=== PATIENT | male | born 1990 | race Caucasian/White ===

== ENCOUNTER 2022-10-05 23:36 | Emergency (ER) | payer OTHER, SELFPAY ==
--- NOTE | ~2022-10-05 | XR_ITS ---
EXAMINATION: XR LUMBOSACRAL SPINE CLINICAL INFORMATION: Pain COMPARISON: None available. TECHNIQUE: Three views of the lumbosacral spine. FINDINGS: The vertebral bodies and posterior elements are normal. Mild loss of disc space height at L5-S1 with accompanying small endplate osteophytes. Vertebral alignment is normal. The paraspinal soft tissues are normal. XR/XR lumbar spine 2-3V IMPRESSION: * No acute findings. * Mild loss of disc space height at L5-S1.
[2022-10-05 23:55] VITALS: BP 148/87; PULSE 87; RESP 18; TEMP 36.9; O2SAT 99
[2022-10-06 00:01] VITALS: BP 148/87; PULSE 87; RESP 18; TEMP 36.9; O2SAT 99; BMI 24.3
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
== END 2022-10-06 01:46 | disposition home or self-care (01) ==
PROVIDERS: Emergency Provider Internal Medicine
DX: K40.90 Unilateral inguinal hernia, without obstruction or gangrene, not specified as recurrent (principal); M54.50 Low back pain, unspecified
CPT/HCPCS: 72100; 99283; 99284

== ENCOUNTER → 2022-10-14 09:28 | Outpatient (BNVA) | payer OTHER, SELFPAY | PROVIDERS: Visit Provider Surgery | DX: R19.09 Other intra-abdominal and pelvic swelling, mass and lump (principal); Z80.0 Family history of malignant neoplasm of digestive organs | CPT/HCPCS: 99202 ==

== ENCOUNTER 2023-03-09 22:17 | Emergency (ER) | payer OTHER, SELFPAY ==
--- NOTE | ~2023-03-09 | CT_ITS ---
EXAMINATION: CT ABDOMEN AND PELVIS WITH CONTRAST CLINICAL INFORMATION: Left upper quadrant pain post trauma COMPARISON: None available. TECHNIQUE: Multidetector volumetric images were obtained from the superior aspect of the liver through the pubic symphysis following administration 85 mL of Omnipaque 350 intravenous contrast. Sagittal and coronal reformatted images were obtained on the technologist's workstation. Oral contrast: No This CT examination was performed using dose optimization techniques as appropriate, variously including the following: *Automated exposure control *Adjustment of mA and/or kV according to patient size (this includes techniques or standardized protocols for targeted exams where dose is matched to indication/reason for exam; i.e. extremities or head) *Use of iterative reconstruction technique DLP: 432 mGy-cm FINDINGS: LUNG BASES: Bibasilar atelectasis and some tree-in-bud opacities are present. No pleural effusions. LIVER, GALLBLADDER, AND BILIARY TREE: The liver is enlarged measuring 19 cm in cephalocaudad dimension with decreased attenuation suggesting hepatic steatosis. No focal hepatic lesion or biliary ductal dilatation is present. The gallbladder is unremarkable with no evidence of radiopaque gallstones, gallbladder wall thickening, or obvious pericholecystic inflammatory changes. PANCREAS: Unremarkable. SPLEEN: Unremarkable. ADRENAL GLANDS: Unremarkable. KIDNEYS AND URETERS: The kidneys are normal in size, shape, and attenuation. No hydronephrosis, hydroureter, or calculi seen. No perinephric stranding. BLADDER: Unremarkable. GASTROINTESTINAL TRACT: A linear metallic device is just outside the posterior antral wall measuring about 2.6 cm in length. This can also be seen on the lumbar spine radiographs from 10/06/2012. The small and large bowel are unremarkable aside from some colonic diverticula without diverticulitis. The appendix is unremarkable. ABDOMINAL WALL: No significant hernia is appreciated. LYMPH NODES: No retroperitoneal lymphadenopathy. VASCULAR: Unremarkable. PELVIC VISCERA: Mild BPH. Seminal vesicles are normal OSSEOUS STRUCTURES: Mild degenerative changes are present in the spine. No acute fractures. CT/CT abdomen pelvis w IV con IMPRESSION: 1. A cause for the patient's left upper quadrant pain has not been found. 2. Incidental note made of an enlarged fatty liver, colonic diverticula without diverticulitis, mild degenerative changes in the spine and mild BPH. Fleischner guidelines were followed.
[2023-03-09 22:20] VITALS: BP 157/104; PULSE 79; RESP 18; TEMP 36.9; O2SAT 96; BMI 24.4
[2023-03-09 22:33] LABS: MANUAL DIFF FLAG NO
[2023-03-09 22:34] LABS: Basophils Percent Auto 0.6 % (0-2); Eosinophils Absolute Auto 0.3 X10*3/uL (0.0-0.4); Eosinophils Percent Auto 5.2 % (0-4); Hematocrit 36.9 % (42.0-52.0); Hemoglobin 13.2 g/dl (14.0-18.0); Imm Gran Abs Auto 0.01 X10*3/uL (0.00-0.03); Imm Gran Pct Auto 0.2 % (0.0-0.4); Lymphocytes Absolute Auto 1.9 X10*3/uL (1.2-4.9); Lymphocytes Percent Auto 37.4 % (20-40); Mean Corpuscular HGB Conc 35.8 g/dl (31.0-36.0); Mean Corpuscular Hemoglobin 33.2 pg (27.0-33.0); Mean Corpuscular Volume 92.9 fL (80.0-98.0); Mean Platelet Volume 9.1 fL (9.4-12.4); Monocytes Absolute Auto 0.5 X10*3/uL (0.1-1.2); Neutrophils Absolute Auto 2.3 x10*3/uL (2.0-8.3); Neutrophils Percent Auto 46.6 % (45-73); Platelet Count 224 X10*3/uL (160-400); Red Blood Count 3.97 X10*6/uL (4.60-5.80)
[2023-03-09 22:50] LABS: Alanine Aminotransferase 35 U/L (0-40); Albumin Level 4.2 g/dL (3.5-5.0); Alkaline Phosphatase 94 U/L (39-117); Anion Gap 12 (12-20); Aspartate Amino Transferase 52 U/L (5-37); Bilirubin Direct 0.2 mg/dL (0.0-0.5); Bilirubin Total 0.4 mg/dL (0.0-1.0); Blood Urea Nitrogen 8 mg/dL (9-16); Calcium 9.3 mg/dL (8.4-10.2); Carbon Dioxide 25 mmol/L (22-29); Chloride 106 mmol/L (96-108); Creatinine Clr Calc Pharmacy 126.5; Estimated Glomerular Filt Rate > 60; Glucose Random 104 mg/dL (60-115); Lipase 38 U/L (8-78); Potassium 3.9 mmol/L (3.3-5.1); Sodium 139 mmol/L (135-145); Total Protein 7.5 g/dL (6.5-8.0)
[2023-03-09 22:55] VITALS: BP 140/92; PULSE 77; RESP 17; TEMP 36.9; O2SAT 100
--- NOTE | 2023-03-09 23:28 | ED.ABDPAIN ---
HPI - Abdominal Pain General Chief Complaint: Abdominal Pain Stated Complaint: L side flank pain, sob Time Seen by Provider: 03/09/23 22:58 Source: patient and old records reviewed Mode of arrival: ambulatory Limitations: no limitations History of Present Illness HPI narrative: 32 yo male with no sig PMH was at work and carrying a large industrial sized pot he accidentally walked into a stove and slammed the pot into his LUQ. He now has pain in LUQ and it hurts to breathe, move and touch LUQ. He has no fevers, GI or symptoms. MD elicited complaint: abdominal pain Pertinent past history: none Onset (ago): day(s) (3) Pain Consistency: constant Location: LUQ Severity: moderate Quality: sharp Radiation: none Migration to: no migration Exacerbating factors: movement and other (breathing) Relieving factors: nothing Context: other (reports trauma to LUQ) Associated symptoms: denies other symptoms Related Data Previous Rx's Medication Instructions Recorded cyclobenzaprine 10 mg tablet 10 mg PO TID PRN muscle spasm #14 03/10/23 tabs lidocaine 5 % topical patch 1 patch topical DAILY #30 ea 03/10/23 Allergies Allergy/AdvReac Type Severity Reaction Status Date / Time No Known Allergies Allergy Unverified 10/14/22 09:46 [No Known Allergies*] Review of Systems Review of Systems Constitutional : No Weight loss, No Fever, No Chills Cardiovascular : No Chest Pain, No SOB, NoEdema Respiratory : No Cough, No Sputum, No Wheezing Gastrointestinal : no Nausea, no Vomiting, no Diarrhea, positive abdominal Pain, No Hematochezia, No Melena Genitourinary : No Dysuria, No Urinary Frequency, No Hematuria, No Urgency Musculoskeletal : No joint pain, No Myalgias, No Joint Swelling Skin : No Skin Lesions, No rash Neuro : No Weakness, No Numbness, No Dizziness, No Headache Psych : No Anxiety/Panic, No Depression All other systems reviewed and are negative. [facility] Past Medical History Attestation statement: The following information was validated with the patient. Medical History Family history of pancreatic cancer Right groin mass Family History Family History Mother Pancreatic cancer Social History Social History Alcohol intake: current Alcohol intake frequency: a few times a month Patient Tobacco Use Status: Current everyday Tobacco user Smoked in Last 30 Days: Yes Use of substances other than those prescribed or required for medical reasons: Yes Substance Use Type: Marijuana Substance Use Frequency: Daily Last Used Substance: Hours (ago) Advance Directives: No Advance Directives Information Provided: Yes Physical Exam ED Vital Signs: Vital Signs - 24 hr 03/09/23 22:20 03/09/23 22:55 Temperature 98.4 F 98.4 F Pulse Rate 79 77 Respiratory Rate 18 17 Blood Pressure 157/104 H 140/92 H Pulse Oximetry 96 100 Oxygen Delivery Method Room Air Room Air BMI result Body Mass Index 24.4 Appearance: Alert. Oriented X3. No acute distress. Eyes: Pupils equal, round and reactive to light. ENT: Pharynx normal. Neck: Normal inspection. Neck supple. CVS: Normal heart rate and rhythm. Pulses normal. Chest: no rib ttp on left side Respiratory: No respiratory distress. Breath sounds normal. Abdomen: Soft and moderate LUQ ttp no rebound or mass felt Skin: Skin warm and dry. Normal skin color. Normal skin turgor. Extremities: No lower extremity edema. No calf ttp Neuro: Oriented X 3. No motor deficit. No sensory deficit. Course Course Course Narrative: okay to DC with abdominal wall strain Medical Decision Making Medical Decision Making [facility] Narrative: 32 yo male with no sig PMH here with c/o LUQ pain after direct trauma to the area 3 days ago he notes it hurts to move, breathe and walk. He has no associated GI or symptoms. He has no rib pain. He will need labs and CT scan to assess the spleen. Doubt rib fracture given normal exam and no rib ttp Differential Diagnosis Differential Diagnoses: The differential diagnosis associated with the presentation includes sprain, strain, contusion, splenic injury Admission/Observation Consideration of admission/observation: Escalation of care including admission/observation considered labs stable no splenic injury can be DC home Lab Data [facility] Lab Attestation statement: I reviewed the patient's lab results. 03/09/23 22:29 03/09/23 22:29 Labs: Lab Results 03/09/23 Range/Units 22:29 WBC 5.0 (4.8-10.8) X10*3/uL RBC 3.97 L (4.60-5.80) X10*6/uL Hgb 13.2 L (14.0-18.0) g/dl Hct 36.9 L (42.0-52.0) % MCV 92.9 (80.0-98.0) fL MCH 33.2 H (27.0-33.0) pg MCHC 35.8 (31.0-36.0) g/dl RDW 13.0 (11.0-16.0) % Plt Count 224 (160-400) X10*3/uL MPV 9.1 L (9.4-12.4) fL Immature Gran % (Auto) 0.2 (0.0-0.4) % Neut % (Auto) 46.6 (45-73) % Lymph % (Auto) 37.4 (20-40) % [place] % (Auto) 10.0 (2-11) % Eos % (Auto) 5.2 H (0-4) % Baso % (Auto) 0.6 (0-2) % Lymph # (Auto) 1.9 (1.2-4.9) X10*3/uL [place] # (Auto) 0.5 (0.1-1.2) X10*3/uL Eos # (Auto) 0.3 (0.0-0.4) X10*3/uL Baso # (Auto) 0.0 (0.0-0.2) X10*3/uL Abs Immat Gran (auto) 0.01 (0.00-0.03) X10*3/uL Absolute Neuts (auto) 2.3 (2.0-8.3) x10*3/uL Absolute Nucleated RBC 0.000 (0.0-0.012) X10*3/uL Nucleated RBC % (auto) 0.0 (0.0-0.2) /100WBC Sodium 139 (135-145) mmol/L Potassium 3.9 (3.3-5.1) mmol/L Chloride 106 (96-108) mmol/L Carbon Dioxide 25 (22-29) mmol/L Anion Gap 12 (12-20) BUN 8 L (9-16) mg/dL Creatinine 0.83 (0.5-1.4) mg/dL Estim Creat Clear Calc 126.5 Estimated GFR > 60 Random Glucose 104 (60-115) mg/dL Calcium 9.3 (8.4-10.2) mg/dL Total Bilirubin 0.4 (0.0-1.0) mg/dL Direct Bilirubin 0.2 (0.0-0.5) mg/dL AST 52 H (5-37) U/L ALT 35 (0-40) U/L Alkaline Phosphatase 94 (39-117) U/L Total Protein 7.5 (6.5-8.0) g/dL Albumin 4.2 (3.5-5.0) g/dL Lipase 38 (8-78) U/L Independent Interpretation I performed an independent interpretation of an: CT Scan (no splenic injury) Radiology Impression Discussion of test interpretation with radiology: I have reviewed the radiologist's reading. External Record Review External record reviewed: Office record Prescription Management I considered prescription management with: Other (muscle relaxers and pain patches) Medications Administered Discontinued Medications Generic Name Dose Route Start Last Admin Trade Name Freq PRN Reason Stop Dose Admin Hydrocodone Bitart/Acetaminophen 1 tab 03/09/23 23:10 03/09/23 23:42 Hydrocodone Bit/Acetam 5/325 Tablet PO 03/09/23 23:11 1 tab ONCE ONE Administration Iohexol 85 ml 03/10/23 00:06 03/10/23 00:07 Iohexol 350 Mg/Ml 100 Ml Infus..Btl IV 03/10/23 00:07 85 ml ONCE ONE Administration Discharge Plan Discharge Clinical Impression: Abdominal pain Qualifiers: Abdominal location: left upper quadrant Qualified Code(s): R10.12 - Left upper quadrant pain Patient Disposition: Home, Self-Care Instructions: Abdominal Pain (ED) Additional Instructions: no injury to spleen - labs stable incidental findings on CT scan not cause of pain will treat as muscle strain and contusion CT/CT abdomen pelvis w IV con IMPRESSION: 1. A cause for the patient's left upper quadrant pain has not been found. 2. Incidental note made of an enlarged fatty liver, colonic diverticula without diverticulitis, mild degenerative changes in the spine and mild BPH. Prescriptions: New cyclobenzaprine 10 mg tablet 10 mg PO TID PRN (Reason: muscle spasm) Qty: 14 0RF lidocaine 5 % adhesive patch,medicated 1 patch topical DAILY Qty: 30 0RF Rx Instructions: leave on most painful area for up to 12 hrs Stand Alone Forms: Work/School Release
[2023-03-09] MEDS: HYDROcodone Bit/Acetam 5/325 TABLET 1 TAB PO (23:42)
--- NOTE | 2023-03-09 23:45 | PC.NURSE ---
Pt alert and oriented. Arrived to ED with complaints of left rib cage pain. Pt reports 3 days ago at work he was hold a large heavy pot and walked into a oven causing injury to his left rib cage. he notes he has been experiencing SOB, pain with inspirations and pain with palpation. Patient denies coughing up any blood. IV lined place, medication adminsitered as per aug CT scan ordered. Plan of care ongoing
--- NOTE | 2023-03-09 23:48 | PC.NURSE ---
Iv placed in right ac, medicated per Aug, Notified DOROTHY Ellis.
[2023-03-10] MEDS: iohexoL 350 MG/ML 100 ML INFUS..BTL 85 ML IV (00:07)
[2023-03-10 01:04] VITALS: BP 143/94; PULSE 79; RESP 17; TEMP 36.9; O2SAT 99
--- NOTE | 2023-03-10 01:32 | PC.NURSE ---
Reassessed for pain, Iv removed, Reviewed discharge instructions with pt, pt verbalized understanding. No sign of distress. Notified DOROTHY Ellis.
== END 2023-03-10 01:34 | disposition home or self-care (01) ==
PROVIDERS: Emergency Provider Emergency Medicine; PCP Internal Medicine
DX: R10.12 Left upper quadrant pain (principal); Z79.899 Other long term (current) drug therapy
CPT/HCPCS: 36415; 74177; 80053; 82248; 83690; 85025; 99284; Q9967